=== PATIENT | female | born 1955 | race Caucasian/White ===

== ENCOUNTER → 2016-07-21 | Outpatient (REF) | payer OTHER ==
[~2016-07-21] MED LIST: BUPR15TA; CLON0.5T PO; DEPA500T2; ESTR625TA; ESTR625TA PO; FLOM5CAP PO; IRONTAB3; NAPR500T; NORCOTAB PO; OMEP40CA2 PO; OXYB5TA PO; PROP10TA56 PO; RANI15TA PO; SERZONE; TRAZ100T; TRAZ100T4 PO; TYLE325T5 PO; WELLTAB40 PO; ZOFR20TA PO
[2016-07-21 13:15] LABS: CALCIUM OXALATE CRYSTALS MODERATE
== END ==
LOC: M SMT 12:38
PROVIDERS: ATTEND Urology
DX: Z87.442 Personal history of urinary calculi (principal); R10.9 Unspecified abdominal pain

== ENCOUNTER → 2016-08-12 | Outpatient (CLI) | payer OTHER ==
--- NOTE | 2016-08-12 09:44 | REP ---
CT abdomen and pelvis without IV or oral contrast: Renal stone protocol. History: History of kidney stone. Flank pain. Comparison CT study is from [facility] dated November 28, 2015. CT findings: Digital preliminary director industrial museum radiograph demonstrates a mild levoconvex curve in the lumbar spine along with degenerative disc changes. There are multiple pelvic phleboliths. The lung bases are clear. No focal hepatic or splenic lesion is seen. The gallbladder and pancreas are unremarkable. No adrenal mass lesion is seen on either side. No retroperitoneal mass or adenopathy is seen. Normal caliber aorta is noted. There is mild to moderate sigmoid colon diverticulosis without CT evidence of diverticulitis. The appendix is not directly visualized but there is no CT evidence of appendicitis. There are multiple infrarenal calculi bilaterally in the kidneys. These are more numerous and more distinctly seen than on the comparison study November 28, 2015. There are five to six tiny intrarenal calculi in the right kidney the largest of which measures 3 mm. In the left kidney, there are four intrarenal calculi. The largest is at mid pole level measuring 4 mm. There is no evidence of hydronephrosis on either side. There is bilateral lobation. There is a stable 5 mm calcification which appears to be in or immediately adjacent to the nondilated right mid ureter. This is unchanged from November 28, [address] exam obtained on June 20, 2014 showed that this was extra ureteral. No intravesical calcification is seen. The patient status post hysterectomy. Impression: Multiple intrarenal nephrolithiasis bilaterally. No hydronephrosis seen. Signed by Benny Jeter MD 08/12/2016 02:50 P
== END ==
LOC: M RAD 08:14
PROVIDERS: ATTEND Urology
DX: N20.0 Calculus of kidney (principal)

== ENCOUNTER → 2016-08-12 | Outpatient (CLI) | payer OTHER ==
--- NOTE | 2016-08-12 09:46 | REP ---
NUCLEAR RENAL SCINTIGRAPHY WITH DIFFERENTIAL FLOW AND FUNCTION ANALYSIS: HISTORY: Kidney calculus. Back pain. TECHNIQUE: 8.7 mCi technetium 99m MAG 3 is injected and posterior flow and excretory phase images are acquired. Renal cortical regions of interest are drawn for renal function analysis. FINDINGS: Posterior flow images show symmetric bilateral renal bed perfusion. Excretory phase images show no evidence of intrarenal mass on either side. The intrarenal collecting systems are labeled normally and symmetrically. There is no evidence of obstructive uropathy on either side. Pre- and post-void images including the bladder show no abnormality. Differential renal function analysis is asymmetric, 37% on the right and 63% on the left. [id number] activity is normal bilaterally at 2.0 minutes. Ozxm-ja-[id number] max activity is normal bilaterally measured at 12.4 minutes on the left and 11.3 minutes on the right. IMPRESSION: Somewhat asymmetric differential function. Otherwise normal nuclear renal scintigraphy. Signed by Benny Jeter MD 08/12/2016 02:50 P
== END ==
LOC: M RAD 08:20
PROVIDERS: ATTEND Internal Medicine Nephrology
DX: N20.0 Calculus of kidney (principal); N13.1 Hydronephrosis with ureteral stricture, not elsewhere classified

== ENCOUNTER → 2016-09-11 | Day surgery (SDC) | payer OTHER ==
[~2016-09-11] VITALS: Ht 160 cm; Wt 57.2 kg
[~2016-09-11] MED LIST changes: +LIDOCAINE 2% INJ 100 MG/5 ML SDV (FOR ANES.) As Ordered ONE; +LR 1,000 ML IV SCH; +MIDAZOLAM INJ 2 MG/2 ML VIAL (J2250) As Ordered ONE; +MORPHINE 2 MG/ML 1ML SYRINGE As Ordered ONE; +NORCO, ANEXSIA 5/325MG TABLET (HYDROcodone/ACETAMINOPHEN) As Ordered ONE; +ONDA4TAB6 PO; +ONDANSETRON 4MG/2ML VIAL (J2405) IV PRN; -OXYB5TA PO; +OXYB5TAB10 PO; +PERCOCET 5MG/325MG TAB As Ordered ONE; +PERCOCET 5MG/325MG TAB PO PRN; +POTA10TAB PO; +PROP40TA PO; +PROPOFOL 200 MG/20 ML VIAL As Ordered ONE; +TOPI25TA10 PO; +TRAZ-136 PO; -TRAZ100T4 PO; +fentaNYL 100 MCG/2 ML INJECTION (J3010) As Ordered ONE; +fentaNYL 100 MCG/2 ML INJECTION (J3010) IV PRN
[2016-09-11] MEDS: LR 1,000 ML IV SCH (09:35)
--- NOTE | 2016-09-11 09:36 | REP ---
KUB: Single view. HISTORY: Kidney stones. COMPARISON STUDY: KUB from 01/01/[address] study from August 12, 2016. FINDINGS: There are tiny calcific opacities superimposed on the kidney silhouettes bilaterally. These are much better visualized on CT. There is a calcification overlying the right upper sacrum, which has been previously shown to be extra ureteral. Multiple phleboliths are noted in the pelvis. There are degenerative changes in the lumbar spine. IMPRESSION: Bilateral intrarenal nephrolithiasis. Signed by Benny Jeter MD 09/11/2016 05:09 P
[2016-09-11 10:04] VITALS: BP 152/96
[2016-09-11] MEDS: PROPRANOLOL 20 MG TAB PO ONE (10:04)
[2016-09-11] MEDS: NORCO, ANEXSIA 5/325MG TABLET (HYDROcodone/ACETAMINOPHEN) PO ONE (10:55)
[2016-09-11] MEDS: MORPHINE 2 MG/ML 1ML SYRINGE IV PRN (11:20)
[2016-09-11 13:00] VITALS: BP 133/70
--- NOTE | 2016-09-11 14:18 | RO ---
DATE OF PROCEDURE: 09/11/2016 PREPROCEDURE DIAGNOSIS: Left kidney stone. POSTPROCEDURE DIAGNOSIS: Left kidney stone. PROCEDURE: Left extracorporeal shockwave lithotripsy. SURGEON: Dr. Jose Juan Pfeiffer WET WASH ASSEMBLER: None ANESTHESIA: Monitored anesthesia care (MAC). OPERATIVE INDICATIONS: This is a 61-year-old female who on recent CAT scan was found to have multiple punctate bilateral nonobstructing kidney stones. There was one stone on the left side which was 4 mm. It was recommended that she undergo a left extracorporeal shockwave lithotripsy to break up the 4 mm stone. DESCRIPTION OF PROCEDURE: The patient was brought to the operating room and MAC anesthesia was administered. Prophylactic antibiotics were infused. She was then placed in the supine position in preparation for left sided extracorporeal shockwave lithotripsy. Fluoroscopy was utilized to monitor the stone position and fragmentation throughout the procedure. Shockwaves were then delivered to the left sided kidney stone ungated. There were no arrhythmias. The stone appeared to fragment well. After 2500 shocks, the procedure was concluded. The patient was then awakened from anesthesia and transported to the recovery room in stable condition. ESTIMATED BLOOD LOSS: 0 mL. COMPLICATIONS: None. SPECIMENS: None. PLAN: The patient will followup in the clinic in a few weeks with imaging prior to assess for residual stone burden. DAVON
== END | disposition home or self-care (01) ==
LOC: M SDC 08:06
PROVIDERS: ATTEND Urology
DX: N20.0 Calculus of kidney (principal); N32.81 Overactive bladder; I12.9 Hypertensive chronic kidney disease with stage 1 through stage 4 chronic kidney disease, or unspecified chronic kidney disease; R29.898 Other symptoms and signs involving the musculoskeletal system; F41.9 Anxiety disorder, unspecified; F32.9 Major depressive disorder, single episode, unspecified; G47.00 Insomnia, unspecified; N18.3 Chronic kidney disease, stage 3 (moderate); K57.32 Diverticulitis of large intestine without perforation or abscess without bleeding; I71.2 Thoracic aortic aneurysm, without rupture; Z88.7 Allergy status to serum and vaccine; Z88.5 Allergy status to narcotic agent; Z91.040 Latex allergy status; Z79.899 Other long term (current) drug therapy; Z78.0 Asymptomatic menopausal state; Z87.891 Personal history of nicotine dependence; Z90.710 Acquired absence of both cervix and uterus
CPT/HCPCS: 50590; 74000; J0690; J2250; J3010

== ENCOUNTER → 2016-10-03 | Outpatient (CLI) | payer OTHER ==
[~2016-10-03] MED LIST changes: -LIDOCAINE 2% INJ 100 MG/5 ML SDV (FOR ANES.) As Ordered ONE; -LR 1,000 ML IV SCH; -MIDAZOLAM INJ 2 MG/2 ML VIAL (J2250) As Ordered ONE; -MORPHINE 2 MG/ML 1ML SYRINGE As Ordered ONE; -NORCO, ANEXSIA 5/325MG TABLET (HYDROcodone/ACETAMINOPHEN) As Ordered ONE; -ONDANSETRON 4MG/2ML VIAL (J2405) IV PRN; -PERCOCET 5MG/325MG TAB As Ordered ONE; -PERCOCET 5MG/325MG TAB PO PRN; -PROPOFOL 200 MG/20 ML VIAL As Ordered ONE; -fentaNYL 100 MCG/2 ML INJECTION (J3010) As Ordered ONE; -fentaNYL 100 MCG/2 ML INJECTION (J3010) IV PRN
--- NOTE | 2016-10-03 10:23 | REP ---
KUB ABDOMEN AND PELVIS: KUB film of the abdomen and pelvis is performed and compared to a prior study of 09/11/2016. Tiny calcific density overlies the mid right renal shadow which is seen on the prior study. There is a similar tiny calcific density overlying the mid left renal shadow also unchanged. Overlying bowel gas and material limits evaluation for small calcifications. Phlebolith is seen to the right of the L5 vertebral body. Multiple phleboliths are seen in the pelvis. There is no evidence of bowel obstruction. There are degenerative changes of the spine. IMPRESSION: Essentially stable exam. Signed by Je Carreno MD 10/03/2016 03:27 P
== END ==
LOC: M SMT 08:57
PROVIDERS: ATTEND Urology
DX: Z87.442 Personal history of urinary calculi (principal); Z09 Encounter for follow-up examination after completed treatment for conditions other than malignant neoplasm

== ENCOUNTER → 2017-05-28 | Outpatient (REF) | payer OTHER | LOC: M LAB REF 16:28 | DX: R30.0 Dysuria (principal) | CPT/HCPCS: 87186 ==

== ENCOUNTER 2017-09-04 13:09 | Emergency (ER) | payer OTHER ==
[2017-09-04] MEDS: ONDANSETRON 4 MG ORAL DISINTEGRATING TAB (Q0162 PER 1MG) PO (15:00)
[2017-09-04] MEDS: NORCO, ANEXSIA 5/325MG TABLET (HYDROcodone/ACETAMINOPHEN) PO (15:00)
[2017-09-04 15:22] LABS: BASO # 0.1 10^3/uL (0.0-0.2); BASO % 1.6 % (0.0-1.0); EOS # 0.1 10^3/uL (0.0-0.50); EOS % 1.7 % (0.0-3.0); HEMATOCRIT 39.1 % (36.0-47.0); IMMATURE GRANULOCYTE % 0.5 % (0-3.0); LYMPH # 2.1 10^3/uL (1.5-4.5); LYMPH % 36.9 % (24.0-44.0); MEAN CORPUSCULAR HEMOGLOBIN 32.3 pg (27.0-33.0); MEAN CORPUSCULAR HGB CONC 33.2 g/dl (32.0-36.5); MONO # 0.5 10^3/uL (0.0-0.8); MONO % 8.2 % (0.0-5.0); NEUTROPHILS # 2.9 10^3/uL (1.8-7.7); NEUTROPHILS % 51.1 % (36.0-66.0); PLATELET COUNT, AUTOMATED 243 10^3/uL (150-450); RED BLOOD COUNT 4.03 10^6/uL (4.00-5.40); RED CELL DISTRIBUTION WIDTH 11.3 % (11.5-14.5); WHITE BLOOD COUNT 5.8 10^3/uL (4.0-10.0)
[2017-09-04 15:43] LABS: ANION GAP 7 MEQ/L (8-16); BLOOD UREA NITROGEN 15 MG/DL (7-18); CALCIUM LEVEL 8.9 MG/DL (8.8-10.2); CARBON DIOXIDE LEVEL 30 MEQ/L (21-32); CHLORIDE LEVEL 103 MEQ/L (98-107); CREATININE FOR GFR 0.98 MG/DL (0.55-1.30); GLOMERULAR FILTRATION RATE > 60.0 (>45); GLUCOSE, FASTING 93 MG/DL (70-100); SODIUM LEVEL 140 MEQ/L (136-145)
[2017-09-04] MEDS: NAPROXEN 250 MG TAB PO (16:18)
== END 2017-09-04 17:29 | disposition home or self-care (01) ==
LOC: M ED 13:09
DX: T24.409A Corrosion of unspecified degree of unspecified site of unspecified lower limb, except ankle and foot, initial encounter (principal); T22.412A Corrosion of unspecified degree of left forearm, initial encounter; T65.91XA Toxic effect of unspecified substance, accidental (unintentional), initial encounter; Y92.89 Other specified places as the place of occurrence of the external cause; I10 Essential (primary) hypertension; Z88.5 Allergy status to narcotic agent; Z88.7 Allergy status to serum and vaccine; Z91.040 Latex allergy status; Z79.899 Other long term (current) drug therapy
CPT/HCPCS: Q0162

== ENCOUNTER → 2017-12-07 | Outpatient (REF) | payer OTHER | LOC: M LAB REF 12-08 15:26 | DX: R19.7 Diarrhea, unspecified (principal) ==

== ENCOUNTER → 2017-12-08 | Outpatient (REF) | payer OTHER ==
[2017-12-08 18:31] LABS: FREE T4 0.93 NG/DL (0.76-1.46)
[2017-12-12 00:06] LABS: CHROMOGRANIN A 2 nmol/L (0-5); TISSUE TRANSGLUTAMINASE IgA <2 U/mL (0-3)
[2017-12-12 00:06] LABS: GASTRIN 19 pg/mL (0-115)
== END ==
LOC: M LABDRAW1 16:20
DX: R19.7 Diarrhea, unspecified (principal)

== ENCOUNTER 2017-12-31 08:58 | Day surgery (SDC) | payer OTHER ==
[2017-12-31] MEDS: NS 1,000 ML IV (09:15)
[2017-12-31] MEDS ORDERED: fentaNYL 100 MCG/2 ML INJECTION (J3010) As Ordered (11:29)
[2017-12-31] MEDS ORDERED: LIDOCAINE 2% INJ 100 MG/5 ML SDV (FOR ANES.) As Ordered (11:29)
[2017-12-31] MEDS ORDERED: PROPOFOL 500 MG/50 ML VIAL As Ordered (11:29)
== END 2017-12-31 12:25 | disposition home or self-care (01) ==
LOC: M OPP 08:58
DX: R19.7 Diarrhea, unspecified (principal); K57.30 Diverticulosis of large intestine without perforation or abscess without bleeding; Q43.8 Other specified congenital malformations of intestine; K64.8 Other hemorrhoids; R12 Heartburn; R11.0 Nausea; I12.9 Hypertensive chronic kidney disease with stage 1 through stage 4 chronic kidney disease, or unspecified chronic kidney disease; Z87.19 Personal history of other diseases of the digestive system; K21.9 Gastro-esophageal reflux disease without esophagitis; M19.90 Unspecified osteoarthritis, unspecified site; I71.4 Abdominal aortic aneurysm, without rupture; F32.9 Major depressive disorder, single episode, unspecified; R51 Headache; N18.3 Chronic kidney disease, stage 3 (moderate); Z87.442 Personal history of urinary calculi; Z88.5 Allergy status to narcotic agent; Z88.7 Allergy status to serum and vaccine; Z91.048 Other nonmedicinal substance allergy status; Z79.899 Other long term (current) drug therapy; Z80.0 Family history of malignant neoplasm of digestive organs; Z80.42 Family history of malignant neoplasm of prostate; Z80.8 Family history of malignant neoplasm of other organs or systems
CPT/HCPCS: 45380

== ENCOUNTER 2018-02-23 12:18 | Day surgery (SDC) | payer OTHER ==
[2018-02-23] MEDS: LR 1,000 ML IV ×2 (13:02→15:56)
[2018-02-23] MEDS ORDERED: fentaNYL 100 MCG/2 ML INJECTION (J3010) As Ordered (14:00)
[2018-02-23] MEDS ORDERED: MIDAZOLAM INJ 2 MG/2 ML VIAL (J2250) As Ordered (14:00)
[2018-02-23] MEDS ORDERED: LIDOCAINE 2% INJ 100 MG/5 ML SDV (FOR ANES.) As Ordered (14:00)
[2018-02-23] MEDS ORDERED: dexameTHASONE 4 MG/ML 1ML VIAL (J1100) As Ordered (14:00)
[2018-02-23] MEDS ORDERED: ONDANSETRON 4MG/2ML VIAL (J2405) As Ordered (14:00)
[2018-02-23] MEDS ORDERED: PROPOFOL 200 MG/20 ML VIAL As Ordered (14:00)
[2018-02-23] MEDS: CONRAY-60 60% 50ML VIAL (Q9961) As Ordered (15:21)
[2018-02-23] MEDS ORDERED: KETOROLAC 60 MG/2 ML VIAL (J1885) As Ordered (15:23)
[2018-02-23] MEDS ORDERED: METOCLOPRAMIDE INJ 10MG/2ML VIAL (J2765) IV (16:15)
[2018-02-23] MEDS ORDERED: PERCOCET 5MG/325MG TAB PO ×2 (16:15)
[2018-02-23] MEDS: ONDANSETRON 4MG/2ML VIAL (J2405) IV (16:20)
[2018-02-23] MEDS: fentaNYL 100 MCG/2 ML INJECTION (J3010) IV ×4 (16:20→16:35)
[2018-02-23] MEDS: oxyBUTYnin 5 MG TAB PO (16:20)
[2018-02-23] MEDS: MEPERIDINE INJ 25 MG/ML VIAL (J2175) IV ×2 (16:20→16:25)
[2018-02-23] MEDS: PERCOCET 5MG/325MG TAB PO ×2 (16:20→16:50)
[2018-02-23] MEDS ORDERED: KETOROLAC 30 MG/ML VIAL (J1885) As Ordered (18:04)
[2018-02-23] MEDS: KETOROLAC 30 MG/ML VIAL (J1885) IV ×3 (18:05→18:55)
== END 2018-02-23 19:35 | disposition home or self-care (01) ==
LOC: M SDC 19:35
DX: N20.0 Calculus of kidney (principal); N13.30 Unspecified hydronephrosis; I12.9 Hypertensive chronic kidney disease with stage 1 through stage 4 chronic kidney disease, or unspecified chronic kidney disease; K57.30 Diverticulosis of large intestine without perforation or abscess without bleeding; K52.9 Noninfective gastroenteritis and colitis, unspecified; D64.9 Anemia, unspecified; K21.9 Gastro-esophageal reflux disease without esophagitis; M12.9 Arthropathy, unspecified; F41.9 Anxiety disorder, unspecified; F32.9 Major depressive disorder, single episode, unspecified; R51 Headache; G47.00 Insomnia, unspecified; N18.3 Chronic kidney disease, stage 3 (moderate); Z88.7 Allergy status to serum and vaccine; Z88.8 Allergy status to other drugs, medicaments and biological substances; Z91.040 Latex allergy status; Z79.899 Other long term (current) drug therapy; Z90.710 Acquired absence of both cervix and uterus
CPT/HCPCS: 52356

== ENCOUNTER 2018-09-15 16:39 | Emergency (ER) | payer MEDICARE, OTHER ==
[~2018-09-15] VITALS: Ht 160 cm; Wt 59.3 kg
[~2018-09-15 16:39] MED LIST changes: +BIOT10TA2 PO; -CLON0.5T PO; +CLON0.5T8 PO; +DEXI60CA2 PO; +ESCI10TA2 PO; +FLOM0.4C39 PO; -FLOM5CAP PO; +HYDR-3715 PO; +NAPR-837 PO; -NORCOTAB PO; +POTA10808 PO; +POTA10TA14 PO; -POTA10TAB PO; +PREGPOW PO; +PROP20TA72 PO; -PROP40TA PO; +PROP40TA62 PO; +REST0.05 OU; -TRAZ-136 PO; +TRAZ-163 PO; -ZOFR20TA PO; +ZOFR4TAB14 PO; +ZOFR4TAB16 PO
[2018-09-15] MEDS ORDERED: FLUORESCEIN OPHTH 1 MG STRIP OD ONE (17:30)
[2018-09-15] MEDS ORDERED: TETRACAINE 0.5% OPHTH SOLN 4ML OD ONE (17:30)
[2018-09-15 18:06] VITALS: BP 173/81
== END 2018-09-15 18:29 | disposition home or self-care (01) ==
LOC: M ED 16:39
DX: H11.31 Conjunctival hemorrhage, right eye (principal); I12.9 Hypertensive chronic kidney disease with stage 1 through stage 4 chronic kidney disease, or unspecified chronic kidney disease; N18.3 Chronic kidney disease, stage 3 (moderate); R51 Headache; Z88.5 Allergy status to narcotic agent; Z88.7 Allergy status to serum and vaccine; Z91.040 Latex allergy status; Z79.899 Other long term (current) drug therapy; Z79.890 Hormone replacement therapy

== ENCOUNTER → 2019-01-31 | Outpatient (REF) | payer MEDICARE, OTHER ==
[~2019-01-31] MED LIST changes: -OMEP40CA2 PO; +OMEP40CA97 PO
[2019-01-31 18:17] LABS: APPEARANCE, URINE CLEAR (CLEAR); BACTERIA, URINE AUTO NEGATIVE (NEGATIVE); BILIRUBIN, URINE AUTO NEGATIVE (NEGATIVE); BLOOD, URINE BLOOD NEGATIVE (NEGATIVE); COLOR, URINE YELLOW (YELLOW); GLUCOSE, URINE (UA) AUTO NEGATIVE (NEGATIVE); KETONE, URINE AUTO NEGATIVE (NEGATIVE); LEUKOCYTE ESTERASE, URINE AUTO NEGATIVE (NEGATIVE); NITRITE, URINE AUTO NEGATIVE (NEGATIVE); PROTEIN, URINE AUTO NEGATIVE (NEGATIVE); RBC, URINE AUTO 1 /HPF (0-3); SQUAMOUS EPITHELIAL CELL UR AU 0 /HPF (0-6); UROBILINOGEN, URINE AUTO 0.2 mg/dL (0.0-2.0); WBC, URINE AUTO 0 /HPF (0-3)
== END ==
LOC: M LAB REF 17:04
PROVIDERS: ATTEND Obstetrics & Gynecology
DX: N39.42 Incontinence without sensory awareness (principal); N39.41 Urge incontinence; N32.81 Overactive bladder

== ENCOUNTER → 2019-04-14 | Outpatient (CLI) | payer MEDICARE, OTHER ==
[~2019-04-14] MED LIST changes: +CLON0.5T2 PO; -CLON0.5T8 PO; -TRAZ-163 PO; +TRAZ-257 PO
--- NOTE | 2019-04-14 10:39 | REPPI ---
KUB ABDOMEN AND PELVIS: Two KUB films of abdomen and pelvis performed. There is no evidence of small bowel obstruction. No dilated small bowel loops are seen. Multiple phleboliths are seen in the pelvis. Questionable punctate calculus is seen overlying the lower pole of the right kidney as well as overlying the lower pole of the left kidney. There are moderate degenerative changes of the spine. IMPRESSION: Questionable punctate calculus lower pole of each kidney. Electronically Signed by Je Carreno MD 04/14/2019 11:09 A
== END ==
LOC: M PLAIMG 09:29 → M PLALAB 09:29
PROVIDERS: ATTEND Urology
DX: I87.8 Other specified disorders of veins (principal); N20.0 Calculus of kidney
CPT/HCPCS: 74018; G0463

== ENCOUNTER 2019-10-16 15:20 | Emergency (ER) | payer MEDICARE, OTHER ==
[~2019-10-16 15:20] MED LIST changes: +KETOROLAC 30 MG/ML 1ML VIAL As Ordered ONE; +KETOROLAC 30 MG/ML 1ML VIAL ONE; +METOCLOPRAMIDE INJ 10MG/2ML VIAL (J2765 PER 1) As Ordered ONE; +METOCLOPRAMIDE INJ 10MG/2ML VIAL (J2765 PER 1) ONE; +diphenhydrAMINE 50MG/ML VIAL (J1200) As Ordered ONE; +diphenhydrAMINE 50MG/ML VIAL (J1200) ONE
[2019-10-16] MEDS ORDERED: AUGMENTIN 875 MG TAB As Ordered ONE (16:16)
[2019-10-16] MEDS ORDERED: AUGMENTIN 875 MG TAB ONE (16:16)
== END 2019-10-16 16:25 | disposition home or self-care (01) ==
LOC: M ED 15:20
DX: J01.90 Acute sinusitis, unspecified (principal); R50.9 Fever, unspecified; I48.91 Unspecified atrial fibrillation; Z88.7 Allergy status to serum and vaccine; Z79.899 Other long term (current) drug therapy
CPT/HCPCS: 70450; 70486; 96374; 96375; 99284; J1200; J1885; J2765

== ENCOUNTER 2019-11-23 17:54 | Observation (INO) | payer MEDICARE, OTHER ==
[~2019-11-23] VITALS: Ht 160 cm; Wt 59.8 kg
[~2019-11-23 17:54] MED LIST changes: -KETOROLAC 30 MG/ML 1ML VIAL As Ordered ONE; -KETOROLAC 30 MG/ML 1ML VIAL ONE; -METOCLOPRAMIDE INJ 10MG/2ML VIAL (J2765 PER 1) As Ordered ONE; -METOCLOPRAMIDE INJ 10MG/2ML VIAL (J2765 PER 1) ONE; -diphenhydrAMINE 50MG/ML VIAL (J1200) As Ordered ONE; -diphenhydrAMINE 50MG/ML VIAL (J1200) ONE
[2019-11-23 18:33] LABS: BASO # 0.1 10^3/uL (0.0-0.2); BASO % 0.9 % (0.0-1.0); EOS # 0.1 10^3/uL (0.0-0.5); EOS % 1.1 % (0.0-3.0); HEMATOCRIT 39.5 % (36.0-47.0); HEMOGLOBIN 13.1 g/dl (12.0-15.5); LYMPH % 29.9 % (24.0-44.0); MEAN CORPUSCULAR HEMOGLOBIN 32.4 pg (27.0-33.0); MEAN CORPUSCULAR HGB CONC 33.2 g/dl (32.0-36.5); MEAN CORPUSCULAR VOLUME 97.8 fl (80.0-96.0); MONO # 0.6 10^3/uL (0.0-0.8); MONO % 8.3 % (0.0-5.0); NEUTROPHILS # 3.9 10^3/uL (1.5-8.5); NEUTROPHILS % 59.2 % (36.0-66.0); PLATELET COUNT, AUTOMATED 250 10^3/uL (150-450); RED BLOOD COUNT 4.04 10^6/uL (4.00-5.40); WHITE BLOOD COUNT 6.6 10^3/uL (4.0-10.0)
[2019-11-23] MEDS ORDERED: NEXI20CA PO (18:33)
[2019-11-23] MEDS ORDERED: METO1TAB87 PO (18:33)
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
[2019-11-23 19:07] LABS: BLOOD UREA NITROGEN 15 MG/DL (7-18); CALCIUM LEVEL 9.2 MG/DL (8.8-10.2); CARBON DIOXIDE LEVEL 27 MEQ/L (21-32); CHLORIDE LEVEL 105 MEQ/L (98-107); CK-MB VALUE MASS < 1.0 NG/ML (<3.6); CPK CREATINE PHOSPHOKINASE 47 U/L (26-192); CREATININE FOR GFR 0.96 MG/DL (0.55-1.30); GLOMERULAR FILTRATION RATE > 60.0 (>45); GLUCOSE, FASTING 91 MG/DL (70-100); MB/CK RELATIVE INDEX 2.13 (< OR =4); SODIUM LEVEL 137 MEQ/L (136-145); TROPONIN I < 0.02 NG/ML (< 0.10)
[2019-11-23] MEDS ORDERED: ACETAMINOPHEN 325 MG TAB As Ordered ONE (20:27)
[2019-11-23] MEDS ORDERED: ACETAMINOPHEN TAB 650MG DOSE (2X325MG) PO ONE (20:30)
[2019-11-23] MEDS ORDERED: TRIA1OI TOP (22:26)
[2019-11-23] MEDS ORDERED: ATEN25TA PO (22:26)
[2019-11-23] MEDS ORDERED: BUPR75TA5 PO (22:26)
[2019-11-23] MEDS ORDERED: SARNLOT TOP (22:26)
[2019-11-23] MEDS ORDERED: VANI1CRE5 EXT (22:26)
[2019-11-23] MEDS ORDERED: LANS30CA PO (22:26)
[2019-11-23] MEDS ORDERED: VANICREAM MOISTURIZING SKIN CREAM 113GM TUBE TOP PRN (22:45)
[2019-11-23] MEDS ORDERED: ANALGESIC BALM CRM 120 GM TOP PRN (22:45)
[2019-11-23] MEDS ORDERED: TRIAMCINOLONE ACET 0.1% OINTMENT 15 GM TOP PRN (22:45)
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
[2019-11-23] MEDS: traZODone 100 MG TAB PO SCH (23:21)
[2019-11-24 07:10] LABS: HEMATOCRIT 37.9 % (36.0-47.0); HEMOGLOBIN 12.5 g/dl (12.0-15.5); MEAN CORPUSCULAR VOLUME 96.9 fl (80.0-96.0); PLATELET COUNT, AUTOMATED 225 10^3/uL (150-450); RED BLOOD COUNT 3.91 10^6/uL (4.00-5.40); WHITE BLOOD COUNT 5.3 10^3/uL (4.0-10.0)
[2019-11-24] MEDS: ENOXAPARIN 40MG/0.4ML SYRINGE (J1650 PER 10MG) SC SCH (07:50)
[2019-11-24 07:51] LABS: BLOOD UREA NITROGEN 13 MG/DL (7-18); CALCIUM LEVEL 8.9 MG/DL (8.8-10.2); CARBON DIOXIDE LEVEL 27 MEQ/L (21-32); CHLORIDE LEVEL 108 MEQ/L (98-107); CREATININE FOR GFR 0.89 MG/DL (0.55-1.30); GLOMERULAR FILTRATION RATE > 60.0 (>45); GLUCOSE, FASTING 93 MG/DL (70-100); MAGNESIUM LEVEL 2.2 MG/DL (1.8-2.4); POTASSIUM SERUM 3.9 MEQ/L (3.5-5.1); SODIUM LEVEL 140 MEQ/L (136-145)
[2019-11-24] MEDS: buPROPion **XL** TABLET 150MG (WELLBUTRIN XL) PO SCH (07:51)
[2019-11-24] MEDS: ACETAMINOPHEN TAB 650MG DOSE (2X325MG) PO PRN ×3 (07:51→20:01)
[2019-11-24] MEDS: PANTOPRAZOLE 40MG TAB (PROTONIX) PO SCH (07:51)
[2019-11-24] MEDS ORDERED: LANSOPRAZOLE SUSPENSION 30 MG/10 ML ORAL SYRINGE (FIRST-LANSOPRAZOLE) PO SCH (09:00)
[2019-11-24] MEDS ORDERED: atenoloL 25 MG TAB PO SCH (09:00)
[2019-11-24] MEDS: VITAMIN B COMPLEX/VIT C CAP PO SCH (09:07)
[2019-11-24] MEDS: buPROPion 75 MG TAB PO SCH (09:07)
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
[2019-11-24] MEDS ORDERED: CLON0.5T2 PO (12:05)
[2019-11-24] MEDS ORDERED: clonazePAM 0.5 MG TAB PO PRN (13:15)
[2019-11-24] MEDS ORDERED: clonazePAM 0.5 MG TAB PO ONE (13:30)
[2019-11-24 15:30] VITALS: BP_SYST 121; BP_SYST 134; BP_SYST 95; BP_DIAS 57; BP_DIAS 60; BP_DIAS 68
--- NOTE | 2019-11-24 16:21 | REPVR ---
Arterial ultrasound of the extracerebral carotid and vertebral arteries Clinical indication: Syncope and collapse Technique: Real-time ultrasound with sellers scale, duplex Doppler, and color flow imaging was performed to evaluate the extracerebral carotid and vertebral arteries. No prior vascular imaging studies are available for correlation at the time of dictation. Findings: Mild plaque formation is identified within the visualized carotid arteries . There is normal antegrade flow within the vertebral arteries bilaterally. The peak systolic velocity measurements within the right and left internal carotid arteries are 70 and 102 cm per second respectively. The right systolic velocity ratio is 1.12, while the left systolic velocity ratio is 1.80. When correlating with NASCET index criteria, no hemodynamically significant stenosis is present. Impression: Unremarkable arterial ultrasound of the extra cerebral carotid and vertebral arteries. Electronically signed by: Yoni Ladd On 11/24/2019 16:20:31 PM
[2019-11-24 20:00] VITALS: BP 139/80
[2019-11-24] MEDS: traZODone 100 MG TAB PO SCH (20:01)
[2019-11-24] MEDS ORDERED: SLF 3 ML SYR IV PRN (20:30)
[2019-11-24] MEDS: SLF 3 ML SYR IV SCH (22:00)
[2019-11-25] VITALS: BP 124/59
[2019-11-25 04:00] VITALS: BP_SYST 100; BP_SYST 103; BP_SYST 115; BP_SYST 92; BP_DIAS 46; BP_DIAS 54; BP_DIAS 55; BP_DIAS 58
[2019-11-25] MEDS: SLF 3 ML SYR IV SCH ×3 (05:35→20:18)
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
[2019-11-25 08:00] VITALS: BP_SYST 140; BP_SYST 141; BP_SYST 144; BP_SYST 145; BP_DIAS 65; BP_DIAS 66; BP_DIAS 71; BP_DIAS 72
[2019-11-25 08:25] LABS: BASO # 0.1 10^3/uL (0.0-0.2); BASO % 1.1 % (0.0-1.0); EOS # 0.1 10^3/uL (0.0-0.5); EOS % 2.1 % (0.0-3.0); HEMATOCRIT 37.3 % (36.0-47.0); HEMOGLOBIN 12.3 g/dl (12.0-15.5); LYMPH # 1.9 10^3/uL (1.5-5.0); LYMPH % 36.5 % (24.0-44.0); MEAN CORPUSCULAR HEMOGLOBIN 32.5 pg (27.0-33.0); MEAN CORPUSCULAR VOLUME 98.4 fl (80.0-96.0); MONO # 0.5 10^3/uL (0.0-0.8); MONO % 8.5 % (0.0-5.0); NEUTROPHILS # 2.7 10^3/uL (1.5-8.5); NEUTROPHILS % 51.4 % (36.0-66.0); PLATELET COUNT, AUTOMATED 246 10^3/uL (150-450); RED BLOOD COUNT 3.79 10^6/uL (4.00-5.40); WHITE BLOOD COUNT 5.3 10^3/uL (4.0-10.0)
[2019-11-25] MEDS ORDERED: FLUBLOK(EGG FREE)(QUAD)INFLUENZA VACC 0.5ML SYRINGE 18YRS & OLDER IM ONE (09:00)
[2019-11-25 09:01] LABS: ALBUMIN 3.1 GM/DL (3.2-5.2); BILIRUBIN,TOTAL 0.3 MG/DL (0.2-1.0); CALCIUM LEVEL 8.8 MG/DL (8.8-10.2); CREATININE FOR GFR 1.08 MG/DL (0.55-1.30)
[2019-11-25] MEDS: buPROPion 75 MG TAB PO SCH (09:01)
[2019-11-25] MEDS: PANTOPRAZOLE 40MG TAB (PROTONIX) PO SCH (09:01)
[2019-11-25] MEDS: buPROPion **XL** TABLET 150MG (WELLBUTRIN XL) PO SCH (09:01)
[2019-11-25] MEDS: VITAMIN B COMPLEX/VIT C CAP PO SCH (09:01)
[2019-11-25] MEDS: ENOXAPARIN 40MG/0.4ML SYRINGE (J1650 PER 10MG) SC SCH (09:03)
[2019-11-25 11:25] LABS: CORTISOL AM 26.2 UG/DL (4.3-22.4)
[2019-11-25] MEDS ORDERED: COSYNTROPIN 0.25 MG/ML VIAL (J0834 PER 0.25MG) IV ONE (13:00)
[2019-11-25] MEDS: ACETAMINOPHEN TAB 650MG DOSE (2X325MG) PO PRN (17:29)
[2019-11-25 20:00] VITALS: BP 140/67
[2019-11-25 20:18] VITALS: BP 140/67
[2019-11-25] MEDS: traZODone 100 MG TAB PO SCH (20:18)
[2019-11-25] MEDS ORDERED: atenoloL 25 MG TAB PO SCH (21:00)
[2019-11-26 04:00] VITALS: BP 137/80
[2019-11-26] MEDS: SLF 3 ML SYR IV SCH (06:00)
[2019-11-26 06:21] LABS: BASO # 0.1 10^3/uL (0.0-0.2); BASO % 0.9 % (0.0-1.0); EOS # 0.1 10^3/uL (0.0-0.5); EOS % 1.7 % (0.0-3.0); HEMATOCRIT 36.3 % (36.0-47.0); LYMPH # 2.2 10^3/uL (1.5-5.0); LYMPH % 41.5 % (24.0-44.0); MEAN CORPUSCULAR HEMOGLOBIN 32.3 pg (27.0-33.0); MEAN CORPUSCULAR HGB CONC 33.1 g/dl (32.0-36.5); MEAN CORPUSCULAR VOLUME 97.8 fl (80.0-96.0); MONO # 0.5 10^3/uL (0.0-0.8); NEUTROPHILS # 2.5 10^3/uL (1.5-8.5); NEUTROPHILS % 46.3 % (36.0-66.0); PLATELET COUNT, AUTOMATED 247 10^3/uL (150-450); RED BLOOD COUNT 3.71 10^6/uL (4.00-5.40); WHITE BLOOD COUNT 5.3 10^3/uL (4.0-10.0)
[2019-11-26 06:49] LABS: ALT/SGPT 16 U/L (12-78); BILIRUBIN,TOTAL 0.2 MG/DL (0.2-1.0); BLOOD UREA NITROGEN 11 MG/DL (7-18); CALCIUM LEVEL 8.5 MG/DL (8.8-10.2); CARBON DIOXIDE LEVEL 28 MEQ/L (21-32); CHLORIDE LEVEL 109 MEQ/L (98-107); CREATININE FOR GFR 0.91 MG/DL (0.55-1.30); GLOMERULAR FILTRATION RATE > 60.0 (>45); GLUCOSE, FASTING 88 MG/DL (70-100); MAGNESIUM LEVEL 2.1 MG/DL (1.8-2.4); PHOSPHORUS LEVEL 3.1 MG/DL (2.5-4.9); POTASSIUM SERUM 3.9 MEQ/L (3.5-5.1); SODIUM LEVEL 143 MEQ/L (136-145); TOTAL PROTEIN 5.9 GM/DL (6.4-8.2)
[2019-11-26 08:00] VITALS: BP 140/70
[2019-11-26] MEDS: buPROPion 75 MG TAB PO SCH (08:09)
[2019-11-26] MEDS: VITAMIN B COMPLEX/VIT C CAP PO SCH (08:09)
[2019-11-26] MEDS: PANTOPRAZOLE 40MG TAB (PROTONIX) PO SCH (08:09)
[2019-11-26] MEDS: buPROPion **XL** TABLET 150MG (WELLBUTRIN XL) PO SCH (08:09)
[2019-11-26] MEDS: ENOXAPARIN 40MG/0.4ML SYRINGE (J1650 PER 10MG) SC SCH (08:10)
[2019-11-26] MEDS ORDERED: ATEN25TA PO (09:53)
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
--- NOTE | 2019-11-26 11:25 | ECGEPIP ---
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
--- NOTE | 2019-11-28 07:37 | ECHO ---
DATE OF PROCEDURE: 11/24/2019 Age: Gender: Female Height: 160 cm Weight: 58 kg REFERRING PHYSICIAN: David Jernigan MD INDICATION: Syncope. MEASUREMENTS: 2D Measurements: Left atrium 2.9 cm Aortic root 3.1 cm Intraventricular septum 0.92 cm Posterior wall 0.83 cm Left ventricle diastole 3.6 cm Inferior vena cava 1.2 cm Doppler Measurements: No aortic stenosis No aortic regurgitation Aortic valve velocity 96.1 cm/s LVOT velocity 86.3 cm/s No mitral regurgitation Mitral E velocity 56.6 cm/s Mitral A velocity 47.6 cm/s Mitral deceleration time 158 msec Mild tricuspid regurgitation Estimated right ventricular systolic pressure 28-33 mmHg Estimated right atrial pressure 5-10 mmHg Pulmonary acceleration time 153 msec (normal) MITRAL ANNULAR TISSUE DOPPLER E prime lateral 7.1 cm/s DESCRIPTION: Rhythm was sinus. Image quality was fair. This was a 2D, M-mode, color flow Doppler, and pulsed wave Doppler examination including mitral annular tissue Doppler. No pericardial effusion. CONCLUSIONS: 1. Normal echocardiogram Doppler. 2. Normal left ventricle internal dimensions and wall thickness. 3. Normal regional LV wall motion and wall thickening. Normal LV systolic function. Normal LV diastolic function. MTDD
== END 2019-11-26 12:48 | disposition home or self-care (01) ==
LOC: M ED 17:54 → M ED INP 21:18 → ENRESERV 11-24 13:47 → M PCU 11-24 15:29
PROVIDERS: ADMIT Internal Medicine; ATTEND Internal Medicine
DX: R55 Syncope and collapse (principal); I10 Essential (primary) hypertension; K21.9 Gastro-esophageal reflux disease without esophagitis; F32.9 Major depressive disorder, single episode, unspecified; R00.2 Palpitations; R41.3 Other amnesia; V49.40XA Driver injured in collision with unspecified motor vehicles in traffic accident, initial encounter; Y92.410 Unspecified street and highway as the place of occurrence of the external cause; D64.9 Anemia, unspecified; F41.9 Anxiety disorder, unspecified; Z87.19 Personal history of other diseases of the digestive system; Z87.442 Personal history of urinary calculi; R06.02 Shortness of breath; R26.9 Unspecified abnormalities of gait and mobility; R53.82 Chronic fatigue, unspecified; R94.31 Abnormal electrocardiogram [ECG] [EKG]; Z87.891 Personal history of nicotine dependence; Z79.899 Other long term (current) drug therapy; Z79.890 Hormone replacement therapy; Z88.5 Allergy status to narcotic agent; Z91.040 Latex allergy status; Z88.7 Allergy status to serum and vaccine
CPT/HCPCS: 36415; 70450; 72125; 80048; 80053; 80400; 82024; 82550; 82553; 83735; 84100; 84443; 84484; 85025; 85027; 93005; 93041; 93306; 93880; 94760; 96372; 96374; 97161; 99285; G0378; J0834; J1650

== ENCOUNTER → 2020-10-11 | Outpatient (CLI) | payer MEDICARE, OTHER ==
[~2020-10-11] MED LIST changes: +ATEN25TA PO; +BUPR75TA5 PO; +ESCI10TA16 PO; -ESCI10TA2 PO; +LANS30CA PO; +METO1TAB87 PO; +NEXI20CA PO; +OMEP40CA4 PO; -OMEP40CA97 PO; +SARNLOT TOP; +TRIA1OI TOP; +VANI1CRE5 EXT
--- NOTE | 2020-10-13 00:11 | ECWPNPC ---
PATIENT NAME: DENAE HEATH : 1955 GENDER: FEMALE VISIT DATE: 10/11/2020 DISCHARGE DATE: 10/11/20 1122 VISIT LOCKED DATE TIME: PHYSICIAN: JULIANNE SIMON RESOURCE: JULIANNE SIMON REASON FOR APPOINTMENT 1. CERVICAL HISTORY OF PRESENT ILLNESS DEPRESSION SCREENING: PHQ-2 (2015 EDITION) LITTLE INTEREST OR PLEASURE IN DOING THINGS?NOT AT ALL FEELING DOWN, DEPRESSED, OR HOPELESS?NOT AT ALL TOTAL SCORE0 GENERAL: HPI 65-YEAR-OLD FEMALE IN FOR INITIAL PAIN CONSULT FOR CERVICAL NECK PAIN. PATIENT ADMITS THE PAIN HAS BEEN PRESENT FOR SEVERAL YEARS HOWEVER IT WAS RECENTLY EXACERBATED IN APRIL STATUS POST A FALL. SHE RATES HER PAIN CURRENTLY AT A 3 OUT OF 10 AND DESCRIBES IT INTERMITTENT AND SHARP. SHE DENIES INJECTIONS IN HER MEDICATIONS THAT SHE HAS TAKEN IN THE PAST FOR THIS.. - - -. FALL RISK SCREENING: SCREENING 1 FALL IN APRIL 2020 EXACERBATED NECK PAIN . PAIN SCREENING: PATIENT HAS A COMPLAINT OF ACUTE OR CHRONIC PAIN :YES LOCATION OF PAIN:HEAD, NECK INTENSITY OF PAIN (SCALE OF 1 TO 10):3 WHAT DOES YOUR PAIN FEEL LIKE:INTERMITTENT, SHARP DURATION:PERIODIC PAIN IS INCREASED BY:OTHERS TURNING HER HEAD PAIN IS DECREASED BY:USE OF PAIN MEDICATIONS, OTHERS TYLENOL AND ICE NURSING NOTE: - - -. PAIN CENTER INTAKE QUESTIONS: DO YOU HAVE A HISTORY OF MRSA? :NO DO YOU TAKE A BLOOD THINNERS? :NO DO YOU HAVE ANY BLEEDING DISORDERS? :NO ANY NEW NUMBNESS OR WEAKNESS IN YOUR LEGS OR ARMS? :NO ANY PACEMAKER,DEFIBRILLATOR, OR DORSAL COLUMN STIMULATOR? :NO DO YOU HAVE ANY RASHES OR OPEN SORES? :NO ARE YOU ALLERGIC TO IV DYE? :NO ARE YOU DIABETIC? :NO ANY NEW PROBLEMS WITH YOUR MEDICATIONS? :NO HAVE YOU RECEIVED A VACCINE IN THE PAST 30 DAYS? :NO DO YOU PLAN TO RECEIVE A VACCINE IN THE NEXT 21 DAYS? :NO DO YOU NEED ANY PRESCRIPTION? :NO DO YOU TAKE ANY IMMUNOSUPPRESSIVE MEDICATIONS? :NO IS THERE A CHANCE YOU COULD BE ? :NO ARE YOU BREAST FEEDING? :NO CURRENT MEDICATIONS TAKING POTASSIUM CHLORIDE ER 10 MEQ TABLET EXTENDED RELEASE 1 TABLET WITH FOOD ORALLY TWICE A DAY TAKING BIOTIN 5000 MCG TABLET 1 TABLET ORALLY ONCE A DAY TAKING WELLBUTRIN 100 MG TABLET 1 TABLET ORALLY 350 MG ONCE A DAY TAKING LANSOPRAZOLE 30 MG CAPSULE DELAYED RELEASE 1 CAPSULE BEFORE A MEAL ORALLY ONCE A DAY TAKING PREMARIN 0.625 MG/GM CREAM DIRECTED VAGINAL DAILY TAKING TRAZODONE HCL 100 MG TABLET 1 TABLET AT BEDTIME ORALLY ONCE A DAY TAKING ATENOLOL 50 MG TABLET 1 TABLET ORALLY ONCE A DAY NOT-TAKING LIDOCAINE HCL 5 % CREAM DIRECTED EXTERNALLY BID NOT-TAKING PROPRANOLOL HCL 20 MG TABLET 1 TABLET ORALLY BEFORE BEDTIME NOT-TAKING PAMELOR 10 MG CAPSULE 1 CAPSULE ORALLY BID NOT-TAKING DEPAKOTE ER 500 MG TABLET EXTENDED RELEASE 24 HOUR 1 TABLET ORALLY BID NOT-TAKING POTASSIUM 1 TAB ORAL , NOTES: DUPLICATE NOT-TAKING CLONAZEPAM 0.5 MG TABLET 1 TABLET ORALLY TWICE A DAY PRN NOT-TAKING DEXLANSOPRAZOLE 60 MG CAPSULE DELAYED RELEASE 1 CAPSULE ORALLY ONCE A DAY NOT-TAKING CIPROFLOXACIN HCL 500 MG TABLET 1 TABLET FOR YOUR CYSTOSCOPY TODAY ORALLY DIRECTED NOT-TAKING TOPIRAMATE 25 MG TABLET 2 TABLET ORALLY TWICE A DAY NOT-TAKING PERCOCET 5-325 MG TABLET 1 TABLET ORALLY EVERY 6 HRS NEEDED FOR PAIN (MDD 4) NOT-TAKING OMEPRAZOLE 50 MG CAPSULE DELAYED RELEASE 1 CAPSULE ORALLY ONCE A DAY NOT-TAKING RANITIDINE HCL 150 MG TABLET EFFERVESCENT 1 TABLET AT BEDTIME ORALLY ONCE A DAY NOT-TAKING HYDROCODONE-ACETAMINOPHEN 5-325 MG TABLET 1-2 TABLET(S) ORALLY EVERY 6 HRS NEEDED FOR PAIN (MDD 8) NOT-TAKING FLOMAX 0.4 MG CAPSULE 1 CAPSULE 30 MINUTES AFTER THE SAME MEAL EACH DAY ORALLY ONCE A DAY NOT-TAKING ZANTAC 300 MG TABLET ORALLY NOT-TAKING VICODIN 5-500 MG TABLET 1 TABLET NEEDED ORALLY EVERY 6 HRS NOT-TAKING WELLBUTRIN XL 300 MG TABLET EXTENDED RELEASE 24 HOUR 1 TABLET EVERY MORNING ORALLY ONCE A DAY NOT-TAKING ZOLOFT 25 MG TABLET 1 TABLET ORALLY ONCE A DAY NOT-TAKING ESTRACE 1 MG CREAM DIRECTED INTRAVAGINALLY BIWEEKLY NOT-TAKING FLOMAX 0.4 MG CAPSULE 1 CAPSULE 30 MINUTES AFTER THE SAME MEAL EACH DAY ORALLY ONCE A DAY NOT-TAKING REGLAN 10 MG TABLET ORALLY NOT-TAKING PERCOCET 5-325 MG TABLET 1-2 TABLET(S) ORALLY EVERY 6 HRS NEEDED FOR PAIN NOT-TAKING FLOMAX 0.4 MG CAPSULE 1 CAPSULE 30 MINUTES AFTER THE SAME MEAL EACH DAY ORALLY ONCE A DAY NOT-TAKING OXYBUTYNIN CHLORIDE 5 MG TABLET 1 TAB(S) ORALLY EVERY 8 HOURS NEEDED FOR BLADDER SPASMS NOT-TAKING CIPRO 500 MG TABLET 1 TABLET FOR YOUR PROCEDURE ORALLY ONCE NOT-TAKING KETOROLAC TROMETHAMINE 10 MG TABLET 1 TABLET WITH FOOD ORALLY EVERY 6 HRS NEEDED FOR PAIN NOT-TAKING KETOROLAC TROMETHAMINE 30 MG TABLET 1 TABLET NEEDED ORALLY EVERY 6 HRS DISCONTINUED PROPRANOLOL HCL 10 MG TABLET 1 TABLET ORALLY THREE TIMES A DAY UNKNOWN OXYBUTYNIN CHLORIDE 5 MG TABLET 1 TABLET ORALLY EVERY 8 HOURS NEEDED FOR BLADDER SPASMS OR URINARY FREQUENCY UNKNOWN NEXIUM 40 MG CAPSULE DELAYED RELEASE 1 CAPSULE ORALLY ONCE A DAY UNKNOWN SODIUM BICARBONATE 325 MG TABLET DIRECTED ORALLY PAST MEDICAL HISTORY PARTIAL SMALL BOWEL OBSTRUCTION RENAL CALCULI DEPRESSION DIVERTICULITIS STAGE 3 KIDNEY DISEASE THORACIC AORTA ANEURISM POTS PHOTOPHOBIA MIGRAINES ESSENTIAL TREMOR CHRONIC LOW BACK & NECK PAIN ALLERGIES TETANUS IMMUNE GLOBULIN: HIVES - ALLERGY LATEX: REDNESS, SWELLING - ALLERGY DILAUDID: BLOOD PRESSURE DECREASES, NAUSEA, RASH - ALLERGY SURGICAL HISTORY SHE HAS HAD A NUMBER OF SHOCK WAVE LITHOTRIPSIES, THE LAST BEING THIS YEAR AND ONE 3 YEARS AGO. TRANSVAGINAL TAPE PROCEDURE FOR STRESS INCONTINENCE KIDNEY STENT URETEROSCOPY WITH BILATERAL STENT PLACEMENT 02/23/2018 CYSTOSCOPY WITH BILATERAL STENT REMOVAL 03/29/2018 BLADDER SUSPENSIONS X 3 UUPHERECTOMY, HYSTERECTOMY FAMILY HISTORY FATHER: , CANCER BRAIN MOTHER: , DM, CANCER INSTESTINES SIBLINGS: ALIVE, BROTHER HAD BLADDER CA X2 AND PROSTATE CANCER, SISTER CANCER STOMACH AND INSTESTINES, OLDER BROTHER HAS PROSTATE CANCER 1 BROTHER(S) , 2 SISTER(S) . 2 SON(S) , 1 DAUGHTER(S) - HEALTHY. BROTHER HAS BLADDER AND PROSTATE CANCER.SISTER HAS STOMACH CANCER. SOCIAL HISTORY GENERAL: TOBACCO USE ARE YOU A:: FORMER SMOKER , HOW LONG HAS IT BEEN SINCE YOU LAST SMOKED?: > 10 YEARS. LATEX QUESTIONNAIRE LATEX ALLERGY : HAVE YOU EVER DEVELOPED ANY TYPE OF REACTION AFTER HANDLING LATEX PRODUCTS SUCH RUBBER GLOVES, CONDOMS, DIAPHRAGMS, BALLOONS, SOCKS, OR UNDERWEAR?YES - PLEASE INDICATE :RUBBER GLOVES TURNIQUET LATEX ALLERGY : HAVE YOU EVER DEVELOPED ANY TYPE OF REACTION DURING OR AFTER DENTAL APPOINTMENT, VAGINAL/RECTAL EXAMINATION, SURGICAL PROCEDURE, OR ANY OTHER EXPOSURE?NO LATEX RISK : HAVE YOU EVER HAD ANY DIFFICULTY BREATHING OR HIVES AFTER EATING OR HANDLING ANY FRUITS, OR VEGETABLES; SUCH KIWI, BANANAS, STONE FRUITS, OR CHESTNUTSNO LATEX RISK : DO YOU HAVE A PREVIOUS PERSONAL HISTORY OF MORE THAN NINE SURGERIES, SPINA BIFIDA, OR REPEATED CATHERIZATIONS? NO LATEX RISK : ARE YOU FREQUENTLY EXPOSED TO LATEX PRODUCTS IN YOUR OCCUPATION?NO DATE ASKED : 10/11/2020 ALCOHOL USE: NO. ALCOHOL SCREENING DID YOU HAVE A DRINK CONTAINING ALCOHOL IN THE PAST YEAR?YES HOW OFTEN DID YOU HAVE A DRINK CONTAINING ALCOHOL IN THE PAST YEAR?MONTHLY OR LESS (1 POINT) HOW MANY DRINKS DID YOU HAVE ON A TYPICAL DAY WHEN YOU WERE DRINKING IN THE PAST YEAR?1 OR 2 (0 POINTS) HOW OFTEN DID YOU HAVE SIX OR MORE DRINKS ON ONE OCCASION IN THE PAST YEAR?NEVER (0 POINTS) POINTS1 INTERPRETATIONNEGATIVE RECREATIONAL DRUG USE DENIES. CAFFEINE CAFFEINE USE?YES HOW OFTEN AND HOW MUCH? COFFEE 1 OR 2 CUPS DAILY SEXUAL HX HAD SEX IN THE LAST 12 MONTHS (VAGINAL, ORAL, OR ANAL)?YES WITHMEN ONLY USE PROTECTION?NO HAVE YOU EVER HAD AN STD?NO CHRISTIANITY NO RASTAFARIAN BELIEFS THAT WOULD IMPACT HEALTH CARE. LANGUAGE DOMINICAN. LEARNING BARRIERS / SPECIAL NEEDS BARRIERS TO LEARNING?NO HEARING IMPAIRED?NO VISION IMPAIRED?NO COGNITIVELY IMPAIRED?NO READINESS TO LEARN?YES LEARNING PREFERENCES?NO LEARNING CAPABILITIES PRESENT?YES EMOTIONAL BARRIERS?NO SPECIAL DEVICES?NO BROACH GRINDER NEEDED?NO DOMESTIC VIOLENCE DO YOU FEEL SAFE IN YOUR ENVIRONMENT?YES OCCUPATION: RETIRED. DIET: REGULAR. EXERCISE: REGULAR EXERCISE. MARITAL STATUS: . 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 HOSPITALIZATION/MAJOR DIAGNOSTIC PROCEDURE SEE ABOVE INTESTINAL BLOCKAGE 2011 INTESTINAL BLOCKAGE 2014 ULCERS AND ANEMIA REVIEW OF SYSTEMS CONSTITUTIONAL: ANY RECENT FEVER NO . CHILLS NO . WEIGHT CHANGE OF UNKNOWN REASONS NO . MUSCULOSKELETAL: ANY UNUSUAL JOINT PAIN OR SWELLING NOT MENTIONED NO . SYSTEMIC LUPUS NO . ANY NEUROMUSCULAR DISORDER NOT MENTIONED NO . LYME DISEASE NO . GASTROENTEROLOGY: ANY NEW CHANGE IN BOWEL CONTROL? NO . HISTORY OF LIVER DISORDER NOT MENTIONED NO . HISTORY OF UNUSUAL ABDOMINAL PAIN OR CRAMPING NOT MENTIONED NO . NO CONSTIPATION. GENITOURINARY: ANY NEW CHANGE IN BLADDER CONTROL? NO . ANY RENAL/KIDNEY CONDITON NOT MENTIONED NO . NEUROLOGY: HISTORY OF TBI NOT MENTIONED NO . OTHER NEW NUMBNESS OR PAIN PATTERNS NOT MENTIONED NO . NEW ONSET DIZZINESS OR NEUROLOGICAL CHANGES NOT MENTIONED NO . HISTORY OF SEVERE HEADACHES NOT MENTIONED NO . HISTORY OF STROKE OR NEUROLOGICAL DISORDER NOT MENTIONED NO . CARDIOLOGY: HEART SURGERY NO . CONGESTIVE HEART FAILURE/FLUID OVERLOAD NOT MENTIONED NO . HISTORY OF CHEST PAIN,IRREGULAR HEART BEAT NOT MENTIONED NO . RESPIRATORY: SHORTNESS OF BREATH ON EXERTION, WHEEZES, UNUSUAL COUGH NOT MENTIONED NO . ENDOCRINOLOGY: ADRENAL GLAND OR THYROID DISORDERS NOT MENTIONED NO . UNUSUAL URINATION, DIZZINESS OR LETHARGY NOT MENTIONED NO . VITAL SIGNS WT 130.2 LBS, WT-KG 59.06 KG, HT 64 IN, BMI 22.35 INDEX, BP 135/72 MM HG, HR 75 /MIN, RR 18 /MIN, TEMP 97.2 F, OXYGEN SAT % 96%, SAFE IN ENV? (Y/N) YES, NA INITIALS AW 1022, REVIEWED BY: Waldo DANIELLE RN. EXAMINATION GENERAL EXAMINATION: GENERALNO ACUTE DISTRESS, WELL NOURISHED AND HYDRATED. PSYCHAPPROPRIATE MOOD AND AFFECT . NECK:POINT TENDERNESS ALONG CERVICAL SPINE, SURROUNDING SKIN SHOWS NO ERYTHEMA, ECCHYMOSIS, INCREASED WARMTH, AND/OR SKIN ERUPTIONS NOTED. PATIENT DOES ENDORSE INCREASED PAIN WITH FACET LOADING. LUNGS:CLEAR TO AUSCULTATION BILATERALLY, NO WHEEZES, RHONCHI, RALES. HEART:NO MURMURS, REGULAR RATE AND RHYTHM. ASSESSMENTS SPONDYLOSIS WITHOUT MYELOPATHY OR RADICULOPATHY, CERVICAL REGION - M47.812 (PRIMARY) TREATMENT SPONDYLOSIS WITHOUT MYELOPATHY OR RADICULOPATHY, CERVICAL REGION NOTES: 65-YEAR-OLD FEMALE IN FOR INITIAL PAIN CONSULT REGARDING CERVICAL NECK PAIN. GIVEN PRESENTING SYMPTOMS AND RESULTS OF PHYSICAL EXAMINATION RECOMMEND BILATERAL THERAPEUTIC CERVICAL FACET BLOCK WITH POSTPROCEDURAL FOLLOW-UP. PATIENT HAS EXPRESSED UNDERSTANDING OF AND WAS IN AGREEMENT WITH TREATMENT PLAN. GIVEN TIME TO ASK QUESTIONS AND EXPRESS CONCERNS. OTHERS NOTES: FACET JOINT INJECTION MATERIAL WAS PRINTED AND GIVEN TO PATIENT. PATIENT VERBLAIZES UNDERSTANDING OF PRE-PROCEDURE INSTRUCTIONS REVIEWED AND COPY PROVIDED. 10/11/2020 1110 Waldo DANIELLE RN. VISIT CODES 28993 OFFICE VISIT, NEW PT., LEVEL 3. PROCEDURE CODES FA211 ESTABILISHED PATIENT [facility] FACILITY CHARGE DISPOSITION & COMMUNICATION FOLLOW UP POST PROCEDURE (REASON: BILATERAL THERAPEUTIC CERVICAL FACET BLOCK) ELECTRONICALLY SIGNED BY VETO SOLITARIO ON 10/12/2020 AT 11:23 AM EDT DISCLAIMER : THIS IS A VISIT SUMMARY EXTRACTED FROM THE [employer] CHART. IT IS NOT A COPY OF THE [employer] PROGRESS NOTE. DAVON
== END ==
LOC: M PAIN 10:00
PROVIDERS: ATTEND Family Medicine
DX: M47.812 Spondylosis without myelopathy or radiculopathy, cervical region (principal); F32.9 Major depressive disorder, single episode, unspecified; N18.30 Chronic kidney disease, stage 3 unspecified; G43.909 Migraine, unspecified, not intractable, without status migrainosus; I71.2 Thoracic aortic aneurysm, without rupture; G25.0 Essential tremor; Z87.442 Personal history of urinary calculi; Z87.891 Personal history of nicotine dependence; Z79.891 Long term (current) use of opiate analgesic; Z79.899 Other long term (current) drug therapy; Z88.7 Allergy status to serum and vaccine; Z88.8 Allergy status to other drugs, medicaments and biological substances; Z91.040 Latex allergy status

== ENCOUNTER → 2020-11-14 | Outpatient (CLI) | payer MEDICARE, OTHER | LOC: M LABSMTC 11:05 | PROVIDERS: ATTEND Anesthesiology | DX: Z01.818 Encounter for other preprocedural examination (principal); Z11.52 Encounter for screening for COVID-19 ==

== ENCOUNTER → 2020-11-19 | Outpatient (CLI) | payer MEDICARE, OTHER ==
[~2020-11-19] MED LIST changes: +BUPIVACAINE HCL 0.25% 10ML VIAL As Ordered ONE; +BUPIVACAINE HCL 0.25% 30ML VIAL As Ordered ONE; +NORCO, ANEXSIA 5/325MG TABLET (HYDROcodone/ACETAMINOPHEN) As Ordered ONE; -POTA10TA14 PO; +POTA1TAB24 PO; +TRIAMCINOLONE ACETONIDE SUSP 40 MG/ML VIAL (J3301) As Ordered ONE; +diazePAM 5MG TABLET As Ordered ONE
== END ==
LOC: M PAIN 08:30
PROVIDERS: ATTEND Anesthesiology
DX: M79.18 Myalgia, other site (principal); G72.9 Myopathy, unspecified; F32.9 Major depressive disorder, single episode, unspecified; N18.30 Chronic kidney disease, stage 3 unspecified; G43.909 Migraine, unspecified, not intractable, without status migrainosus; G25.0 Essential tremor; Z87.891 Personal history of nicotine dependence; Z79.899 Other long term (current) drug therapy; Z88.7 Allergy status to serum and vaccine; Z88.8 Allergy status to other drugs, medicaments and biological substances; Z91.040 Latex allergy status
CPT/HCPCS: 20552; J3301

== ENCOUNTER → 2021-02-22 | Outpatient (CLI) | payer MEDICARE, OTHER ==
[~2021-02-22] MED LIST changes: -BUPIVACAINE HCL 0.25% 10ML VIAL As Ordered ONE; -BUPIVACAINE HCL 0.25% 30ML VIAL As Ordered ONE; -NORCO, ANEXSIA 5/325MG TABLET (HYDROcodone/ACETAMINOPHEN) As Ordered ONE; +POTA10TA14 PO; -POTA1TAB24 PO; -TRIAMCINOLONE ACETONIDE SUSP 40 MG/ML VIAL (J3301) As Ordered ONE; -diazePAM 5MG TABLET As Ordered ONE
== END ==
LOC: M PAIN 09:30
PROVIDERS: ATTEND Anesthesiology
DX: G89.29 Other chronic pain (principal); M47.812 Spondylosis without myelopathy or radiculopathy, cervical region; F32.A Depression, unspecified; N18.30 Chronic kidney disease, stage 3 unspecified; G43.909 Migraine, unspecified, not intractable, without status migrainosus; G25.0 Essential tremor; M54.2 Cervicalgia; M54.50 Low back pain, unspecified; Z87.891 Personal history of nicotine dependence; Z79.891 Long term (current) use of opiate analgesic; Z79.899 Other long term (current) drug therapy; Z88.7 Allergy status to serum and vaccine; Z88.8 Allergy status to other drugs, medicaments and biological substances; Z91.040 Latex allergy status

== ENCOUNTER → 2021-10-28 | Outpatient (CLI) | payer MEDICARE, OTHER ==
[~2021-10-28] MED LIST changes: +ATEN50TA2 PO; +GALC120S SQ; +K-TA10TA PO; -POTA10TA14 PO; +POTA1TAB24 PO; +PROZ10CA7 PO
== END ==
LOC: M LABSMTC 09:34
PROVIDERS: ATTEND Anesthesiology
DX: Z01.818 Encounter for other preprocedural examination (principal); Z11.52 Encounter for screening for COVID-19

== ENCOUNTER 2021-10-30 10:06 | Day surgery (SDC) | payer MEDICARE, OTHER ==
[~2021-10-30] VITALS: Ht 160 cm; Wt 56.7 kg
[~2021-10-30 10:06] MED LIST changes: +ACETAMINOPHEN 325 MG TAB PO PRN; +BSS IRRIG/VANCO(10MG)/TOBRA(5MG)/EPINEPH(1:1000-0.5CC)500ML BAG-ORONLY IR ONE; +CEFUROXIME 1MG/0.1ML INTRACAMERAL INJ As Ordered ONE; +CYCLOPENTOLATE 1% OPHTH SOLN 2 ML BTL OS SCH; +LIDOCAINE 1% SDV 5ML VIAL As Ordered ONE; +LIDOCAINE 3.5 % 1ML OPHTH TOPICAL GEL OU ONE; +OFLOXACIN 0.3 % (OCUFLOX) OPTH SOL 5ML OS ONE; +PHENYLEPHRINE 2.5% OPHTH SOL 2ML OS SCH; +PHENYLEPHRINE HCL 10 % OPHTH. SOL 5ML OS PRN; +TROPICAMIDE 1% OPHTH SOLN 2ML OS SCH
[2021-10-30] MEDS ORDERED: fentaNYL 100 MCG/2 ML INJECTION As Ordered ONE (10:20)
[2021-10-30] MEDS ORDERED: MIDAZOLAM INJ 2MG/2ML VIAL (J2250 PER 1MG) As Ordered ONE (10:20)
[2021-10-30] MEDS ORDERED: CLON0.5T2 PO (10:34)
[2021-10-30] MEDS ORDERED: TAMS1CAP17 (10:35)
[2021-10-30 11:25] VITALS: BP 133/63
[2021-10-30] MEDS ORDERED: acetaZOLAMIDE 500MG ER CAP PO ONE (11:55)
[2021-10-30] MEDS ORDERED: ONDANSETRON 4MG TAB PO PRN (11:55)
== END 2021-10-30 12:30 | disposition home or self-care (01) ==
LOC: M SDC 10:06
PROVIDERS: ATTEND Ophthalmology
DX: H25.12 Age-related nuclear cataract, left eye (principal); I10 Essential (primary) hypertension; K57.92 Diverticulitis of intestine, part unspecified, without perforation or abscess without bleeding; Z87.891 Personal history of nicotine dependence; G47.00 Insomnia, unspecified; D64.9 Anemia, unspecified; N18.1 Chronic kidney disease, stage 1; Z88.7 Allergy status to serum and vaccine; Z88.5 Allergy status to narcotic agent; Z91.040 Latex allergy status; I25.10 Atherosclerotic heart disease of native coronary artery without angina pectoris; Z79.899 Other long term (current) drug therapy
CPT/HCPCS: 66984; 92015; J0697; J2250; J3010; V2632

== ENCOUNTER → 2022-01-15 | Outpatient (CLI) | payer MEDICARE, OTHER ==
[~2022-01-15] MED LIST changes: -ACETAMINOPHEN 325 MG TAB PO PRN; -BSS IRRIG/VANCO(10MG)/TOBRA(5MG)/EPINEPH(1:1000-0.5CC)500ML BAG-ORONLY IR ONE; -CEFUROXIME 1MG/0.1ML INTRACAMERAL INJ As Ordered ONE; -CYCLOPENTOLATE 1% OPHTH SOLN 2 ML BTL OS SCH; +E-Z-GAS II EFFERVESCENT PACKET (SODIUM BICARB./CITRIC ACID/SIMETHICONE) As Ordered ONE; +E-Z-HD 98% w/w 340GM SUSP BTL As Ordered ONE; +E-Z-PAQUE 96% w/w SUSP 176GM BTL As Ordered ONE; -LIDOCAINE 1% SDV 5ML VIAL As Ordered ONE; -LIDOCAINE 3.5 % 1ML OPHTH TOPICAL GEL OU ONE; -OFLOXACIN 0.3 % (OCUFLOX) OPTH SOL 5ML OS ONE; -PHENYLEPHRINE 2.5% OPHTH SOL 2ML OS SCH; -PHENYLEPHRINE HCL 10 % OPHTH. SOL 5ML OS PRN; +TAMS1CAP17; -TROPICAMIDE 1% OPHTH SOLN 2ML OS SCH
== END ==
LOC: M RAD 08:55
PROVIDERS: ATTEND Internal Medicine Gastroenterology
DX: R05.3 Chronic cough (principal)

== ENCOUNTER → 2022-01-20 | Outpatient (CLI) | payer MEDICARE, OTHER ==
[~2022-01-20] MED LIST changes: -E-Z-GAS II EFFERVESCENT PACKET (SODIUM BICARB./CITRIC ACID/SIMETHICONE) As Ordered ONE; -E-Z-HD 98% w/w 340GM SUSP BTL As Ordered ONE; -E-Z-PAQUE 96% w/w SUSP 176GM BTL As Ordered ONE
== END ==
LOC: M LABSMTC 10:18
PROVIDERS: ATTEND Anesthesiology
DX: Z01.812 Encounter for preprocedural laboratory examination (principal); Z11.52 Encounter for screening for COVID-19

== ENCOUNTER 2022-01-24 10:31 | Day surgery (SDC) | payer MEDICARE, OTHER ==
[~2022-01-24] VITALS: Ht 160 cm; Wt 56.2 kg
[~2022-01-24 10:31] MED LIST changes: +NS 1,000 ML IV ONE
[2022-01-24] MEDS ORDERED: LIDOCAINE 2% 100MG/5ML SDV (FOR ANES.) As Ordered ONE (12:57)
[2022-01-24] MEDS ORDERED: propofoL 200 MG/20 ML VIAL As Ordered ONE (12:57)
[2022-01-24 13:34] VITALS: BP 181/77
== END 2022-01-24 13:50 | disposition home or self-care (01) ==
LOC: M OPP 10:31
PROVIDERS: ATTEND Internal Medicine Gastroenterology
DX: Q39.4 Esophageal web (principal); I71.40 Abdominal aortic aneurysm, without rupture, unspecified; I25.10 Atherosclerotic heart disease of native coronary artery without angina pectoris; I12.9 Hypertensive chronic kidney disease with stage 1 through stage 4 chronic kidney disease, or unspecified chronic kidney disease; M19.90 Unspecified osteoarthritis, unspecified site; F41.9 Anxiety disorder, unspecified; F32.A Depression, unspecified; G43.909 Migraine, unspecified, not intractable, without status migrainosus; G47.00 Insomnia, unspecified; G47.30 Sleep apnea, unspecified; N18.1 Chronic kidney disease, stage 1; Z88.5 Allergy status to narcotic agent; Z88.7 Allergy status to serum and vaccine; Z88.8 Allergy status to other drugs, medicaments and biological substances; Z91.040 Latex allergy status; Z87.442 Personal history of urinary calculi; Z79.899 Other long term (current) drug therapy

== ENCOUNTER → 2022-05-27 | Outpatient (CLI) | payer MEDICARE, OTHER ==
[~2022-05-27] MED LIST changes: -NS 1,000 ML IV ONE
== END ==
LOC: M WUC 09:15
PROVIDERS: ATTEND Urology
DX: N20.0 Calculus of kidney (principal); K59.89 Other specified functional intestinal disorders

== ENCOUNTER → 2023-01-14 | Outpatient (CLI) | payer MEDICARE, OTHER ==
[~2023-01-14] MED LIST changes: -K-TA10TA PO; -OXYB5TAB10 PO; +OXYB5TAB11 PO; +POTA-164 PO
== END ==
LOC: M CARPUL 09:41
PROVIDERS: ATTEND Internal Medicine Critical Care Medicine
DX: I27.20 Pulmonary hypertension, unspecified (principal); I35.8 Other nonrheumatic aortic valve disorders

== ENCOUNTER → 2023-02-18 | Outpatient (CLI) | payer MEDICARE, OTHER ==
[~2023-02-18] MED LIST changes: +ISOVUE-370 76% 100ML VIAL As Ordered ONE
== END ==
LOC: M RAD 08:29
PROVIDERS: ATTEND Internal Medicine
DX: R05.3 Chronic cough (principal)
CPT/HCPCS: 71260; Q9967

== ENCOUNTER → 2023-05-21 | Outpatient (CLI) | payer MEDICARE, OTHER ==
[~2023-05-21] MED LIST changes: -ISOVUE-370 76% 100ML VIAL As Ordered ONE; -OXYB5TAB11 PO; +OXYB5TAB14 PO
[2023-05-21 11:50] LABS: BASO # 0.1 10^3/uL (0.0-0.2); BASO % 1.3 % (0.0-1.0); EOS # 0.1 10^3/uL (0.0-0.5); EOS % 1.7 % (0.0-3.0); HEMATOCRIT 39.7 % (36.0-47.0); HEMOGLOBIN 12.9 g/dl (12.0-15.5); LYMPH # 1.9 10^3/uL (1.5-5.0); MEAN CORPUSCULAR HEMOGLOBIN 31.8 pg (27.0-33.0); MEAN CORPUSCULAR HGB CONC 32.5 g/dl (32.0-36.5); MEAN CORPUSCULAR VOLUME 97.8 fl (80.0-96.0); MONO # 0.6 10^3/uL (0.0-0.8); NEUTROPHILS # 3.6 10^3/uL (1.5-8.5); PLATELET COUNT, AUTOMATED 241 10^3/uL (150-450); RED BLOOD COUNT 4.06 10^6/uL (4.00-5.40); WHITE BLOOD COUNT 6.3 10^3/uL (4.0-10.0)
[2023-05-21 12:18] LABS: C REACTIVE PROTEIN QUANTITATIV < 0.40 MG/DL (<1.0)
[2023-05-21 12:30] LABS: IMMUNOGLOBULIN E 5.7 IU/ML (0-378)
== END ==
LOC: M LAB 10:44
PROVIDERS: ATTEND Internal Medicine Critical Care Medicine
DX: J45.20 Mild intermittent asthma, uncomplicated (principal)

== ENCOUNTER → 2023-07-17 | Outpatient (CLI) | payer MEDICARE, OTHER ==
[2023-07-17 18:13] LABS: APPEARANCE, URINE HAZY (CLEAR); BACTERIA, URINE AUTO 1+ (NEGATIVE); BILIRUBIN, URINE AUTO NEGATIVE (NEGATIVE); BLOOD, URINE BLOOD NEGATIVE (NEGATIVE); COLOR, URINE YELLOW (YELLOW); GLUCOSE, URINE (UA) AUTO NEGATIVE (NEGATIVE); KETONE, URINE AUTO NEGATIVE (NEGATIVE); LEUKOCYTE ESTERASE, URINE AUTO 3+ (NEGATIVE); MUCUS, URINE SMALL (NEGATIVE); NITRITE, URINE AUTO NEGATIVE (NEGATIVE); PROTEIN, URINE AUTO NEGATIVE (NEGATIVE); RBC, URINE AUTO 4 /HPF (0-3); SPECIFIC GRAVITY URINE AUTO 1.024 (1.002-1.035); SQUAMOUS EPITHELIAL CELL UR AU 2 /HPF (0-6); WBC, URINE AUTO 4 /HPF (0-3)
== END ==
LOC: M PLAIMG 11:09
PROVIDERS: ATTEND Urology
DX: N20.2 Calculus of kidney with calculus of ureter (principal)

== ENCOUNTER → 2024-02-24 | Outpatient (REF) | payer MEDICARE, OTHER ==
[~2024-02-24] MED LIST changes: +ONDA-282 PO; -ONDA4TAB6 PO; -POTA10808 PO; +POTA10809 PO
[2024-02-24 13:28] LABS: APPEARANCE, URINE HAZY (CLEAR); BACTERIA, URINE AUTO NEGATIVE (NEGATIVE); BILIRUBIN, URINE AUTO NEGATIVE (NEGATIVE); BLOOD, URINE BLOOD NEGATIVE (NEGATIVE); COLOR, URINE YELLOW (YELLOW); GLUCOSE, URINE (UA) AUTO NEGATIVE (NEGATIVE); KETONE, URINE AUTO NEGATIVE (NEGATIVE); LEUKOCYTE ESTERASE, URINE AUTO 3+ (NEGATIVE); MUCUS, URINE SMALL (NEGATIVE); NITRITE, URINE AUTO NEGATIVE (NEGATIVE); PROTEIN, URINE AUTO NEGATIVE (NEGATIVE); RBC, URINE AUTO 2 /HPF (0-3); SPECIFIC GRAVITY URINE AUTO 1.025 (1.002-1.035); SQUAMOUS EPITHELIAL CELL UR AU 1 /HPF (0-6); WBC, URINE AUTO 4 /HPF (0-3)
== END ==
LOC: M SMT 12:27
PROVIDERS: ATTEND Urology
DX: N39.0 Urinary tract infection, site not specified (principal)

== ENCOUNTER → 2024-05-05 | Outpatient (REF) | payer MEDICARE, OTHER ==
[2024-05-05 18:59] LABS: APPEARANCE, URINE HAZY (CLEAR); BACTERIA, URINE AUTO NEGATIVE (NEGATIVE); BILIRUBIN, URINE AUTO NEGATIVE (NEGATIVE); BLOOD, URINE BLOOD NEGATIVE (NEGATIVE); CALCIUM OXALATE CRYSTALS LARGE; COLOR, URINE AMBER (YELLOW); GLUCOSE, URINE (UA) AUTO NEGATIVE (NEGATIVE); KETONE, URINE AUTO NEGATIVE (NEGATIVE); LEUKOCYTE ESTERASE, URINE AUTO 1+ (NEGATIVE); MUCUS, URINE SMALL (NEGATIVE); NITRITE, URINE AUTO NEGATIVE (NEGATIVE); PROTEIN, URINE AUTO NEGATIVE (NEGATIVE); RBC, URINE AUTO 10 /HPF (0-3); SPECIFIC GRAVITY URINE AUTO 1.024 (1.002-1.035); SQUAMOUS EPITHELIAL CELL UR AU 2 /HPF (0-6); WBC, URINE AUTO 2 /HPF (0-3)
== END ==
LOC: M SMT 17:18
PROVIDERS: ATTEND Urology
DX: N39.0 Urinary tract infection, site not specified (principal)

== ENCOUNTER → 2024-06-02 | Outpatient (CLI) | payer MEDICARE, OTHER | LOC: M PLAIMG 11:22 | PROVIDERS: ATTEND Urology | DX: N20.0 Calculus of kidney (principal) ==

== ENCOUNTER → 2024-07-25 | Outpatient (CLI) | payer MEDICARE, OTHER ==
[~2024-07-25] MED LIST changes: -FLOM0.4C39 PO; +TAMS-18 PO; +TOPI-256 PO; -TOPI25TA10 PO
== END ==
LOC: M PLAIMG 07-18 07:08
PROVIDERS: ATTEND Internal Medicine Critical Care Medicine
DX: R91.8 Other nonspecific abnormal finding of lung field (principal)

== ENCOUNTER → 2024-12-19 | Outpatient (REF) | payer MEDICARE, OTHER ==
[~2024-12-19] MED LIST changes: +PROZ10CA11 PO; -PROZ10CA7 PO
[2024-12-19 18:25] LABS: APPEARANCE, URINE HAZY (CLEAR); BACTERIA, URINE AUTO NEGATIVE (NEGATIVE); BILIRUBIN, URINE AUTO NEGATIVE (NEGATIVE); BLOOD, URINE BLOOD NEGATIVE (NEGATIVE); CALCIUM OXALATE CRYSTALS SMALL; GLUCOSE, URINE (UA) AUTO NEGATIVE (NEGATIVE); KETONE, URINE AUTO NEGATIVE (NEGATIVE); LEUKOCYTE ESTERASE, URINE AUTO NEGATIVE (NEGATIVE); MUCUS, URINE SMALL (NEGATIVE); NITRITE, URINE AUTO NEGATIVE (NEGATIVE); PROTEIN, URINE AUTO NEGATIVE (NEGATIVE); RBC, URINE AUTO 1 /HPF (0-3); SPECIFIC GRAVITY URINE AUTO 1.020 (1.002-1.035); SQUAMOUS EPITHELIAL CELL UR AU 1 /HPF (0-6); UROBILINOGEN, URINE AUTO 0.2 mg/dL (0.0-2.0); WBC, URINE AUTO 2 /HPF (0-3)
== END ==
LOC: M LAB REF 16:43
PROVIDERS: ATTEND Nurse Practitioner Family
DX: R39.198 Other difficulties with micturition (principal)